=== PATIENT | female | born 1980 | race Caucasian/White ===

== ENCOUNTER → 2022-04-25 | Outpatient (CLI) | payer MEDICAID ==
[~2022-04-25] MED LIST: HYDR-757 PO
== END ==
LOC: WOUNDCARE 13:25
PROVIDERS: ATTEND Family Medicine
DX: T81.31XA Disruption of external operation (surgical) wound, not elsewhere classified, initial encounter (principal); T65.292A Toxic effect of other tobacco and nicotine, intentional self-harm, initial encounter; E66.01 Morbid (severe) obesity due to excess calories; Z68.41 Body mass index [BMI] 40.0-44.9, adult
CPT/HCPCS: 11042; G0463

== ENCOUNTER → 2022-05-02 | Outpatient (CLI) | payer MEDICAID | LOC: WOUNDCARE 10:40 | PROVIDERS: ATTEND Family Medicine | DX: T81.31XA Disruption of external operation (surgical) wound, not elsewhere classified, initial encounter (principal); E66.01 Morbid (severe) obesity due to excess calories; T65.292A Toxic effect of other tobacco and nicotine, intentional self-harm, initial encounter; I96 Gangrene, not elsewhere classified | CPT/HCPCS: 11042; G0463 ==

== ENCOUNTER → 2022-05-04 | Outpatient (CLI) | payer MEDICAID | LOC: WOUNDCARE 08:10 | PROVIDERS: ATTEND Family Medicine | DX: S31.109A Unspecified open wound of abdominal wall, unspecified quadrant without penetration into peritoneal cavity, initial encounter (principal); X58.XXXA Exposure to other specified factors, initial encounter | CPT/HCPCS: 97605; G0463 ==

== ENCOUNTER → 2022-05-08 | Outpatient (CLI) | payer MEDICAID | LOC: WOUNDCARE 10:13 | PROVIDERS: ATTEND Family Medicine | DX: T81.31XA Disruption of external operation (surgical) wound, not elsewhere classified, initial encounter (principal); I96 Gangrene, not elsewhere classified; E66.01 Morbid (severe) obesity due to excess calories; T65.292A Toxic effect of other tobacco and nicotine, intentional self-harm, initial encounter; A49.9 Bacterial infection, unspecified; Z68.41 Body mass index [BMI] 40.0-44.9, adult | CPT/HCPCS: 11042; 87070; 87205; 97605; A6234; G0463; 87077 ==

== ENCOUNTER → 2022-05-11 | Outpatient (CLI) | payer MEDICAID | LOC: WOUNDCARE 10:03 | PROVIDERS: ATTEND Family Medicine | DX: S31.109A Unspecified open wound of abdominal wall, unspecified quadrant without penetration into peritoneal cavity, initial encounter (principal); X58.XXXA Exposure to other specified factors, initial encounter | CPT/HCPCS: 97605; G0463 ==

== ENCOUNTER → 2022-05-15 | Outpatient (CLI) | payer MEDICAID | LOC: WOUNDCARE 12:22 | PROVIDERS: ATTEND Family Medicine | DX: T81.31XA Disruption of external operation (surgical) wound, not elsewhere classified, initial encounter (principal); E66.01 Morbid (severe) obesity due to excess calories; T65.292A Toxic effect of other tobacco and nicotine, intentional self-harm, initial encounter; B95.62 Methicillin resistant Staphylococcus aureus infection as the cause of diseases classified elsewhere; B95.2 Enterococcus as the cause of diseases classified elsewhere; I96 Gangrene, not elsewhere classified | CPT/HCPCS: 11042; 97605; A6234; G0463 ==

== ENCOUNTER → 2022-05-17 | Outpatient (CLI) | payer MEDICAID | LOC: WOUNDCARE 09:11 | PROVIDERS: ATTEND Family Medicine | DX: S31.109A Unspecified open wound of abdominal wall, unspecified quadrant without penetration into peritoneal cavity, initial encounter (principal) | CPT/HCPCS: 97605; A6234; G0463 ==

== ENCOUNTER → 2022-05-19 | Outpatient (CLI) | payer MEDICAID | LOC: WOUNDCARE 09:28 | PROVIDERS: ATTEND Family Medicine | DX: S31.109A Unspecified open wound of abdominal wall, unspecified quadrant without penetration into peritoneal cavity, initial encounter (principal); I96 Gangrene, not elsewhere classified | CPT/HCPCS: 97605; G0463 ==

== ENCOUNTER → 2022-05-22 | Outpatient (CLI) | payer MEDICAID | LOC: WOUNDCARE 09:29 | PROVIDERS: ATTEND Family Medicine | DX: T81.31XA Disruption of external operation (surgical) wound, not elsewhere classified, initial encounter (principal); E66.01 Morbid (severe) obesity due to excess calories; T65.292A Toxic effect of other tobacco and nicotine, intentional self-harm, initial encounter; A49.02 Methicillin resistant Staphylococcus aureus infection, unspecified site; B95.2 Enterococcus as the cause of diseases classified elsewhere; I96 Gangrene, not elsewhere classified | CPT/HCPCS: 11042; 97605; G0463 ==

== ENCOUNTER → 2022-05-24 | Outpatient (CLI) | payer MEDICAID | LOC: WOUNDCARE 08:58 | PROVIDERS: ATTEND Family Medicine | DX: S31.109A Unspecified open wound of abdominal wall, unspecified quadrant without penetration into peritoneal cavity, initial encounter (principal); X58.XXXA Exposure to other specified factors, initial encounter | CPT/HCPCS: 97605; G0463 ==

== ENCOUNTER → 2022-05-26 | Outpatient (CLI) | payer MEDICAID | LOC: WOUNDCARE 09:16 | PROVIDERS: ATTEND Family Medicine | DX: S31.109A Unspecified open wound of abdominal wall, unspecified quadrant without penetration into peritoneal cavity, initial encounter (principal); X58.XXXA Exposure to other specified factors, initial encounter | CPT/HCPCS: 97605; G0463 ==

== ENCOUNTER → 2022-05-29 | Outpatient (CLI) | payer MEDICAID | LOC: WOUNDCARE 09:01 | PROVIDERS: ATTEND Family Medicine | DX: T81.31XA Disruption of external operation (surgical) wound, not elsewhere classified, initial encounter (principal); E66.01 Morbid (severe) obesity due to excess calories; T65.292A Toxic effect of other tobacco and nicotine, intentional self-harm, initial encounter; I96 Gangrene, not elsewhere classified | CPT/HCPCS: 11042; 87070; 87205; 97605; G0463; 87077 ==

== ENCOUNTER → 2022-05-31 | Outpatient (CLI) | payer MEDICAID | LOC: WOUNDCARE 09:52 | PROVIDERS: ATTEND Family Medicine | DX: S31.109A Unspecified open wound of abdominal wall, unspecified quadrant without penetration into peritoneal cavity, initial encounter (principal); X58.XXXA Exposure to other specified factors, initial encounter | CPT/HCPCS: 97605; G0463 ==

== ENCOUNTER → 2022-06-02 | Outpatient (CLI) | payer MEDICAID | LOC: WOUNDCARE 09:58 | PROVIDERS: ATTEND Family Medicine | DX: S31.109A Unspecified open wound of abdominal wall, unspecified quadrant without penetration into peritoneal cavity, initial encounter (principal); X58.XXXA Exposure to other specified factors, initial encounter | CPT/HCPCS: 97605; G0463 ==

== ENCOUNTER → 2022-06-06 | Outpatient (CLI) | payer MEDICAID | LOC: WOUNDCARE 08:55 | PROVIDERS: ATTEND Family Medicine | DX: T81.31XA Disruption of external operation (surgical) wound, not elsewhere classified, initial encounter (principal); I96 Gangrene, not elsewhere classified; E66.01 Morbid (severe) obesity due to excess calories; T65.292A Toxic effect of other tobacco and nicotine, intentional self-harm, initial encounter | CPT/HCPCS: 11042; 97605; G0463 ==

== ENCOUNTER → 2022-06-09 | Outpatient (CLI) | payer MEDICAID | LOC: WOUNDCARE 09:00 | PROVIDERS: ATTEND Family Medicine | DX: S31.109A Unspecified open wound of abdominal wall, unspecified quadrant without penetration into peritoneal cavity, initial encounter (principal); X58.XXXA Exposure to other specified factors, initial encounter | CPT/HCPCS: 84134; 97605; G0463; 36415 ==

== ENCOUNTER → 2022-06-12 | Outpatient (CLI) | payer MEDICAID | LOC: WOUNDCARE 09:07 | PROVIDERS: ATTEND Family Medicine | DX: T81.31XA Disruption of external operation (surgical) wound, not elsewhere classified, initial encounter (principal); E66.01 Morbid (severe) obesity due to excess calories; T65.292A Toxic effect of other tobacco and nicotine, intentional self-harm, initial encounter; B37.2 Candidiasis of skin and nail; I96 Gangrene, not elsewhere classified | CPT/HCPCS: 99213 ==

== ENCOUNTER → 2022-06-19 | Outpatient (CLI) | payer MEDICAID | LOC: WOUNDCARE 10:47 | PROVIDERS: ATTEND Family Medicine | DX: T81.31XA Disruption of external operation (surgical) wound, not elsewhere classified, initial encounter (principal); E66.01 Morbid (severe) obesity due to excess calories; T65.222A Toxic effect of tobacco cigarettes, intentional self-harm, initial encounter; I96 Gangrene, not elsewhere classified | CPT/HCPCS: 11042; 97605; A6234; G0463 ==

== ENCOUNTER → 2022-06-21 | Outpatient (CLI) | payer MEDICAID | LOC: WOUNDCARE 10:51 | PROVIDERS: ATTEND Family Medicine | DX: S91.109A Unspecified open wound of unspecified toe(s) without damage to nail, initial encounter (principal); X58.XXXA Exposure to other specified factors, initial encounter | CPT/HCPCS: 97605; G0463 ==

== ENCOUNTER → 2022-06-23 | Outpatient (CLI) | payer MEDICAID | LOC: WOUNDCARE 11:01 | PROVIDERS: ATTEND Family Medicine | DX: T81.89XA Other complications of procedures, not elsewhere classified, initial encounter (principal) | CPT/HCPCS: 97605; A6234; G0463 ==

== ENCOUNTER → 2022-06-26 | Outpatient (CLI) | payer MEDICAID | LOC: WOUNDCARE 10:25 | PROVIDERS: ATTEND Family Medicine | DX: T81.31XA Disruption of external operation (surgical) wound, not elsewhere classified, initial encounter (principal); I96 Gangrene, not elsewhere classified; B37.2 Candidiasis of skin and nail; E66.01 Morbid (severe) obesity due to excess calories; T65.292A Toxic effect of other tobacco and nicotine, intentional self-harm, initial encounter | CPT/HCPCS: 11042; A6197; A6212; G0463 ==

== ENCOUNTER → 2022-07-03 | Outpatient (CLI) | payer MEDICAID | LOC: WOUNDCARE 10:22 | PROVIDERS: ATTEND Family Medicine | DX: T81.31XA Disruption of external operation (surgical) wound, not elsewhere classified, initial encounter (principal); T65.292A Toxic effect of other tobacco and nicotine, intentional self-harm, initial encounter; E11.52 Type 2 diabetes mellitus with diabetic peripheral angiopathy with gangrene; I96 Gangrene, not elsewhere classified; E66.01 Morbid (severe) obesity due to excess calories | CPT/HCPCS: 11042 ==

== ENCOUNTER → 2022-07-10 | Outpatient (CLI) | payer MEDICAID | LOC: WOUNDCARE 10:31 | PROVIDERS: ATTEND Family Medicine | DX: T81.31XA Disruption of external operation (surgical) wound, not elsewhere classified, initial encounter (principal); E66.01 Morbid (severe) obesity due to excess calories; T65.292A Toxic effect of other tobacco and nicotine, intentional self-harm, initial encounter; I96 Gangrene, not elsewhere classified | CPT/HCPCS: 11042; A6212; G0463 ==

== ENCOUNTER → 2022-07-17 | Outpatient (CLI) | payer MEDICAID | LOC: WOUNDCARE 10:30 | PROVIDERS: ATTEND Family Medicine | DX: T81.31XA Disruption of external operation (surgical) wound, not elsewhere classified, initial encounter (principal); E66.01 Morbid (severe) obesity due to excess calories; B37.2 Candidiasis of skin and nail; T65.292A Toxic effect of other tobacco and nicotine, intentional self-harm, initial encounter; I96 Gangrene, not elsewhere classified | CPT/HCPCS: 11042; 87070; 87077; 87205; A6021; A6212; G0463 ==

== ENCOUNTER → 2022-07-24 | Outpatient (CLI) | payer MEDICAID | LOC: WOUNDCARE 10:23 | PROVIDERS: ATTEND Family Medicine | DX: I96 Gangrene, not elsewhere classified (principal); T81.31XA Disruption of external operation (surgical) wound, not elsewhere classified, initial encounter; E66.01 Morbid (severe) obesity due to excess calories; T65.292A Toxic effect of other tobacco and nicotine, intentional self-harm, initial encounter; B37.2 Candidiasis of skin and nail | CPT/HCPCS: 11042; A6212; G0463 ==

== ENCOUNTER → 2022-07-31 | Outpatient (CLI) | payer MEDICAID | LOC: WOUNDCARE 10:31 | PROVIDERS: ATTEND Family Medicine | DX: T81.31XA Disruption of external operation (surgical) wound, not elsewhere classified, initial encounter (principal); I96 Gangrene, not elsewhere classified; E66.01 Morbid (severe) obesity due to excess calories; T65.292A Toxic effect of other tobacco and nicotine, intentional self-harm, initial encounter; B37.2 Candidiasis of skin and nail | CPT/HCPCS: 11042; A6021; A6212; G0463 ==

== ENCOUNTER → 2022-09-04 | Outpatient (CLI) | payer MEDICAID ==
[2022-09-04 14:18] LABS: BASOPHILS % (AUTO) 0 % (0-10); EOSINOPHILS # (AUTO) 0.1 10^3/uL (0.0-0.3); EOSINOPHILS % (AUTO) 1 % (0-10); HEMATOCRIT 40 % (35-52); HEMOGLOBIN 13.1 g/dL (11.5-16.0); LYMPHOCYTES # (AUTO) 2.3 10^3/uL (1.0-4.0); LYMPHOCYTES % (AUTO) 23 % (12-44); MEAN CORPUSCULAR HEMOGLOBIN 31 pg (25-34); MEAN CORPUSCULAR HGB CONC 33 g/dL (32-36); MEAN CORPUSCULAR VOLUME 93 fL (80-99); MEAN PLATELET VOLUME 10.6 fL (9.0-12.2); MONOCYTES # (AUTO) 0.4 10^3/uL (0.0-1.0); MONOCYTES % (AUTO) 4 % (0-12); NEUTROPHILS % (AUTO) 71 % (42-75); PLATELET COUNT 328 10^3/uL (130-400); WHITE BLOOD COUNT 9.9 10^3/uL (4.3-11.0)
[2022-09-04 14:52] LABS: BILIRUBIN,TOTAL 0.4 MG/DL (0.1-1.0); CALCIUM 9.4 MG/DL (8.5-10.1); CREATININE SERUM 0.78 MG/DL (0.60-1.30); POTASSIUM 3.5 MMOL/L (3.6-5.0); TOTAL PROTEIN 7.6 GM/DL (6.4-8.2)
== END ==
LOC: WOUNDCARE 13:11
PROVIDERS: ATTEND Family Medicine
DX: T81.31XA Disruption of external operation (surgical) wound, not elsewhere classified, initial encounter (principal); T65.292A Toxic effect of other tobacco and nicotine, intentional self-harm, initial encounter; E66.01 Morbid (severe) obesity due to excess calories
CPT/HCPCS: 11042; 80053; 82306; 82607; 82728; 82746; 83036; 83540; 83550; 84134; 85025; A6021; G0463; 36415

== ENCOUNTER → 2022-09-13 | Outpatient (CLI) | payer MEDICAID | LOC: WOUNDCARE 12:55 | PROVIDERS: ATTEND Family Medicine | DX: T81.31XA Disruption of external operation (surgical) wound, not elsewhere classified, initial encounter (principal); T65.292A Toxic effect of other tobacco and nicotine, intentional self-harm, initial encounter; E55.9 Vitamin D deficiency, unspecified; E61.1 Iron deficiency; E66.01 Morbid (severe) obesity due to excess calories | CPT/HCPCS: 99212 ==

== ENCOUNTER → 2022-09-18 | Outpatient (CLI) | payer MEDICAID | LOC: WOUNDCARE 09:01 | PROVIDERS: ATTEND Family Medicine | DX: E66.01 Morbid (severe) obesity due to excess calories (principal); T65.292A Toxic effect of other tobacco and nicotine, intentional self-harm, initial encounter; E55.9 Vitamin D deficiency, unspecified; E61.1 Iron deficiency | CPT/HCPCS: A6212; G0463; 99212 ==

== ENCOUNTER → 2022-10-10 | Outpatient (CLI) | payer MEDICAID ==
[~2022-10-10] MED LIST changes: +HOLD METFORMIN - RECEIVED CONTRAST 20 ML VIAL IV SCH; +IOHEXOL 350 MG/ML 100 ML (OMNIPAQUE 350) VIAL IV ONE; +NS 100 ML (IVPB) BAG IV ONE
--- NOTE | 2022-10-10 15:08 | Diagnostic Imaging Report ---
PROCEDURE: CT abdomen and pelvis without contrast. TECHNIQUE: Multiple contiguous axial images were obtained through the abdomen and pelvis without the use of intravenous contrast. Auto Exposure Controls were utilized during the CT exam to meet ALARA standards for radiation dose reduction. INDICATION: Abdominal pain. COMPARISON: None. FINDINGS: The heart is unremarkable. The lung bases are clear. Cortical cyst is seen in the inferior pole of the left kidney with rim calcification. This measures approximately 1.5 cm. No evidence of hydronephrosis or renal calculi. The liver, spleen, pancreas, and adrenal glands have a normal appearance. The gallbladder is surgically absent. There is no pathologically enlarged mesenteric or retroperitoneal adenopathy. 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 The bowel loops are nondilated. The appendix is visualized in the right lower quadrant and has a normal appearance. There is no free fluid or free air. No acute osseous abnormalities. There is a tiny fat-containing ventral hernia at the midline just superior to the umbilicus. There are nonspecific inflammatory changes in the superficial soft tissues of the ventral abdomen. No evidence of loculated fluid collection. Ureters and bladder are normal. There is no free air, loculated collection, or adenopathy in the pelvis. IMPRESSION: 1. Tiny fat-containing ventral hernia superior to the umbilicus. No associated entrapped loops of bowel. 2. Nonspecific inflammatory changes in the superficial soft tissues of the ventral abdomen. No evidence of abscess or soft tissue mass. 3. Cortical cyst in the inferior pole of the left kidney with associated rim calcifications. Follow-up could be performed with renal ultrasound to further evaluate. Dictated by: Dictated on workstation # [id number]
== END ==
LOC: WOUNDCARE 10:24
PROVIDERS: ATTEND Family Medicine
DX: E66.01 Morbid (severe) obesity due to excess calories (principal); T65.292A Toxic effect of other tobacco and nicotine, intentional self-harm, initial encounter; E55.9 Vitamin D deficiency, unspecified; E61.1 Iron deficiency; L03.311 Cellulitis of abdominal wall
CPT/HCPCS: 74176; 99212

== ENCOUNTER → 2022-11-01 | Outpatient (CLI) | payer MEDICAID ==
[~2022-11-01] MED LIST changes: -HOLD METFORMIN - RECEIVED CONTRAST 20 ML VIAL IV SCH; -IOHEXOL 350 MG/ML 100 ML (OMNIPAQUE 350) VIAL IV ONE; -NS 100 ML (IVPB) BAG IV ONE
== END ==
LOC: WOUNDCARE 10:29
PROVIDERS: ATTEND Family Medicine
DX: I96 Gangrene, not elsewhere classified (principal); L02.211 Cutaneous abscess of abdominal wall; T65.222A Toxic effect of tobacco cigarettes, intentional self-harm, initial encounter; E66.01 Morbid (severe) obesity due to excess calories; E61.1 Iron deficiency; Z68.41 Body mass index [BMI] 40.0-44.9, adult
CPT/HCPCS: 11042; 87070; 87205; G0463

== ENCOUNTER → 2022-11-06 | Outpatient (CLI) | payer MEDICAID | LOC: WOUNDCARE 08:57 | PROVIDERS: ATTEND Family Medicine | DX: E66.01 Morbid (severe) obesity due to excess calories (principal); T65.292A Toxic effect of other tobacco and nicotine, intentional self-harm, initial encounter; E55.9 Vitamin D deficiency, unspecified; E61.1 Iron deficiency; L02.211 Cutaneous abscess of abdominal wall; I96 Gangrene, not elsewhere classified | CPT/HCPCS: A6266; G0463; 99213 ==

== ENCOUNTER → 2022-11-07 | Outpatient (CLI) | payer MEDICAID ==
--- NOTE | 2022-11-07 09:40 | Diagnostic Imaging Report ---
PROCEDURE: CT abdomen without contrast. TECHNIQUE: Multiple contiguous axial images were obtained through the abdomen without the use of intravenous contrast. Auto Exposure Controls were utilized during the CT exam to meet ALARA standards for radiation dose reduction. INDICATION: Abdominal wall abscess COMPARISON: 10/10/2022 Induration is again seen within the subcutaneous tissues of the anterior abdominal wall. This extends from the epigastrium to below the umbilicus, however, lower portions are not fully included. There is, however, no organized fluid collection or drainable abscess. Within the abdomen, there has been no significant change in the surgical appearance of the stomach and absence of gallbladder. Unenhanced liver, pancreas, adrenal glands and kidneys are stable and no splenic abnormality is seen. The 2.2 cm cortical cyst in left kidney with dependent calcification. No free fluid or pathologically enlarged adenopathy is seen. No focal inflammation is seen within the abdomen. IMPRESSION: Induration and probable inflammation in the anterior abdominal wall is similar to previous study without evidence of organized fluid collection or abscess at this time. Dictated by: Dictated on workstation # [id number]
== END ==
LOC: RAD 08:22
PROVIDERS: ATTEND Family Medicine
DX: L02.211 Cutaneous abscess of abdominal wall (principal); E66.01 Morbid (severe) obesity due to excess calories; T65.292A Toxic effect of other tobacco and nicotine, intentional self-harm, initial encounter; E55.9 Vitamin D deficiency, unspecified; K45.8 Other specified abdominal hernia without obstruction or gangrene; E61.1 Iron deficiency
CPT/HCPCS: 74150

== ENCOUNTER → 2022-11-16 | Outpatient (CLI) | payer MEDICAID | LOC: WOUNDCARE 10:27 | PROVIDERS: ATTEND Family Medicine | DX: E66.01 Morbid (severe) obesity due to excess calories (principal); E55.9 Vitamin D deficiency, unspecified; E61.1 Iron deficiency; T65.292A Toxic effect of other tobacco and nicotine, intentional self-harm, initial encounter; L02.211 Cutaneous abscess of abdominal wall | CPT/HCPCS: A6212; G0463; 99213 ==

== ENCOUNTER → 2022-11-20 | Outpatient (CLI) | payer MEDICAID | LOC: WOUNDCARE 08:59 | PROVIDERS: ATTEND Family Medicine | DX: E66.01 Morbid (severe) obesity due to excess calories (principal); T65.292A Toxic effect of other tobacco and nicotine, intentional self-harm, initial encounter; E55.9 Vitamin D deficiency, unspecified; E61.1 Iron deficiency; L02.211 Cutaneous abscess of abdominal wall | CPT/HCPCS: A6212; G0463; 99213 ==

== ENCOUNTER → 2022-11-27 | Outpatient (CLI) | payer MEDICAID | LOC: WOUNDCARE 10:15 | PROVIDERS: ATTEND Family Medicine | DX: E66.01 Morbid (severe) obesity due to excess calories (principal); T65.222A Toxic effect of tobacco cigarettes, intentional self-harm, initial encounter; E55.9 Vitamin D deficiency, unspecified; D64.9 Anemia, unspecified; D50.9 Iron deficiency anemia, unspecified; L02.211 Cutaneous abscess of abdominal wall | CPT/HCPCS: A6212; G0463; 99213 ==

== ENCOUNTER → 2023-01-01 | Outpatient (CLI) | payer MEDICAID | LOC: WOUNDCARE 10:16 | PROVIDERS: ATTEND Family Medicine | DX: E66.01 Morbid (severe) obesity due to excess calories (principal); E55.9 Vitamin D deficiency, unspecified; T65.292A Toxic effect of other tobacco and nicotine, intentional self-harm, initial encounter; E61.1 Iron deficiency; L98.492 Non-pressure chronic ulcer of skin of other sites with fat layer exposed | CPT/HCPCS: 99213 ==

== ENCOUNTER → 2023-02-02 | Outpatient (CLI) | payer MEDICAID | LOC: WOUNDCARE 08:30 | PROVIDERS: ATTEND Family Medicine | DX: E66.01 Morbid (severe) obesity due to excess calories (principal); T65.292A Toxic effect of other tobacco and nicotine, intentional self-harm, initial encounter; E55.9 Vitamin D deficiency, unspecified; E61.1 Iron deficiency; L98.492 Non-pressure chronic ulcer of skin of other sites with fat layer exposed | CPT/HCPCS: A6212; G0463; 99213 ==